=== PATIENT | male | born 1990 | race Asian ===

== ENCOUNTER 2022-12-10 14:57 | Emergency (ER) | payer MEDICAID ==
[~2022-12-10] VITALS: Ht 182.9 cm; Wt 82.6 kg
[2022-12-10 15:12] VITALS: BP 119/77
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
[2022-12-10] MEDS ORDERED: IBUPROFEN 600 MG TAB PO ONE (16:45)
[2022-12-10] MEDS ORDERED: IBUP-2213 PO (17:54)
--- NOTE | 2022-12-10 18:15 | NUR ---
Patient discharged with v/s stable. Written and verbal after care instructions [employer] given and explained. Patient alert, oriented and verbalized understanding of instructions. Ambulatory with steady gait. All questions addressed prior to discharge. ID band removed. Patient advised to follow up with PMD. Rx of MOTRIN given. Patient educated on indication of medication including possible reaction and side effects. Opportunity to ask questions provided and answered.
--- NOTE | 2022-12-10 18:15 | NUR ---
PER PA DEIDRE, CANCEL KARSON WRAP. NO SWELLING NOTED, PT AMBULATORY
== END 2022-12-10 18:15 | disposition home or self-care (01) ==
LOC: MED 14:57
DX: S81.012D Laceration without foreign body, left knee, subsequent encounter (principal); Z48.02 Encounter for removal of sutures; X58.XXXD Exposure to other specified factors, subsequent encounter
CPT/HCPCS: 73562; 99283